=== PATIENT | female | born 1970 | race Caucasian/White ===

== ENCOUNTER → 2016-11-10 | Outpatient (CLI) | payer BC ==
[2013-10-15 11:05] VITALS: BP 124/51
[~2016-11-10] MED LIST: ALBU0.63 NEB; ALBU8.5H6 INH; CHRO1TAB2 PO; IOHEXOL 240 MG/ML 50ML VIAL. PO ONE; IOHEXOL 300 MG/ML 100ML VIAL. IV ONE; NAPR500T4 PO; OXYC-323 PO; [UNRECOGNIZED DRUG - CODE] PO
--- NOTE | 2016-11-10 13:40 | KCIC ---
CT abdomen and pelvis without and with contrast 11/10/2016 CLINICAL INDICATION: Nausea, vomiting, fevers, chills. COMPARISON: None. TECHNIQUE: Multiple CT images of the abdomen and pelvis were obtained prior to and following the intravenous administration of 100 mL Omnipaque 300. *One or more of the following individualized dose reduction techniques were utilized for this examination: 1. Automated exposure control. 2. Adjustment of the mA and/or kV according to patient size. 3. Use of iterative reconstruction technique. FINDINGS: Abdomen and pelvis: There is diffuse hepatic steatosis. Prior cholecystectomy. There is mild splenic megaly measuring 14.5 cm oblique CC. A few calcified splenic granulomas. No intra or extrahepatic biliary ductal dilatation. Adrenal glands and pancreas are unremarkable. There are multiple bilateral nonobstructive nephrolithiasis, largest in the right kidney in the superior pole measuring 11 mm and the largest in the left kidney in the superior pole measuring 6 mm. No hydroureteronephrosis. There are multiple pelvic phleboliths. Abdominal aorta is normal in caliber. Major portal, splenic and visualized superior mesenteric veins are patent. Small and large bowel loops are normal in caliber without obstruction. Appendix is normal in appearance. No retroperitoneal or mesenteric lymphadenopathy. No abdominal free fluid. There is mild circumferential thickening of the urinary bladder, however is minimally distended. Uterus is present though incompletely evaluated by CT. No iliac or inguinal lymphadenopathy. No pelvic free fluid. There is a tiny fat-containing supraumbilical ventral hernia with a neck measuring 8 mm. No destructive osseous lesions. IMPRESSION: 1. Bilateral nonobstructive nephrolithiasis. 2. Hepatic steatosis. 3. Mild splenomegaly. 4. Mild urinary bladder wall thickening which may be due to incomplete distention, however cystitis cannot be excluded. Correlation with urinalysis is recommended. Electronically signed by: Zay Ford MD (11/10/2016 1:37 PM) [id number]
== END | disposition home or self-care (01) ==
LOC: KCIC CT 12:05
PROVIDERS: ATTEND Physician Assistant
DX: N20.0 Calculus of kidney (principal); K76.0 Fatty (change of) liver, not elsewhere classified; I10 Essential (primary) hypertension; K43.9 Ventral hernia without obstruction or gangrene; R31.0 Gross hematuria; R11.2 Nausea with vomiting, unspecified; R50.9 Fever, unspecified; R16.1 Splenomegaly, not elsewhere classified; Z87.442 Personal history of urinary calculi; Z79.01 Long term (current) use of anticoagulants
CPT/HCPCS: 74178; Q9966; Q9967

== ENCOUNTER 2016-11-11 16:49 | Inpatient (IN) | payer BC ==
[~2016-11-11] VITALS: Ht 162.6 cm; Wt 125.6 kg
[~2016-11-11 16:49] MED LIST changes: -IOHEXOL 240 MG/ML 50ML VIAL. PO ONE; -IOHEXOL 300 MG/ML 100ML VIAL. IV ONE
[2016-11-11 17:36] VITALS: BP 149/96
[2016-11-11] MEDS ORDERED: ZOLPIDEM 5 MG TABLET. PO PRN (18:30)
[2016-11-11 19:00] VITALS: BP 130/82
[2016-11-11] MEDS ORDERED: ONDANSETRON PF 4 MG/2 ML VIAL. IV PRN (19:45)
[2016-11-11 19:52] LABS: BILIRUBIN,URINE SMALL (NEG); GLUCOSE,URINE NEGATIVE (NEG); NITRITE,URINE POSITIVE (NEG); PROTEIN,URINE 30 mg/dL (NEG-TRACE); UROBILINOGEN,URINE 0.2 mg/dL (0.2 mg/dL)
[2016-11-11 20:03] LABS: RBC,URINE >40 /HPF (0-2); WBC,URINE >40 /HPF (0-4)
[2016-11-11 20:04] LABS: BACTERIA,URINE MODERATE /HPF (0-FEW); SQUAMOUS EPITHELIAL CELL,UR FEW /LPF
[2016-11-11] MEDS: POTASSIUM CHLORIDE IV SCH (20:22)
[2016-11-11] MEDS: DEXTROSE IV SCH (20:22)
[2016-11-11] MEDS: NACL IV SCH (20:22)
[2016-11-11] MEDS: CIPROFLOXACIN 400MG PREMIX 200 ML IV SCH (20:23)
[2016-11-11 20:40] LABS: BASO # 0.1 x10^3/uL (0.0-0.2); BASO % 1 % (0-3); EOS % 1 % (0-3); HEMATOCRIT 40.6 % (36.0-47.0); HEMOGLOBIN 13.6 g/dL (12.0-15.5); LYMPH # 1.4 x10^3/uL (1.0-4.8); LYMPH % 14 % (24-48); MEAN CORPUSCULAR HEMOGLOBIN 28 pg (25-35); MEAN CORPUSCULAR HGB CONC 34 g/dL (31-37); MEAN CORPUSCULAR VOLUME 84 fL (79-100); MONO % 10 % (0-9); NEUT % 75 % (31-73); PLATELET COUNT 293 x10^3/uL (140-400); RED BLOOD COUNT 4.84 x10^6/uL (3.50-5.40); RED CELL DISTRIBUTION WIDTH 14.1 % (11.5-14.5); WHITE BLOOD COUNT 10.4 x10^3/uL (4.0-11.0)
[2016-11-11] MEDS: IPRATRPIUM/ALBUTEROL 0.5/2.5MG 3 ML NEBU. NEB SCH (21:01)
[2016-11-11 21:02] LABS: ALBUMIN 3.6 g/dL (3.4-5.0); ALBUMIN/GLOBULIN RATIO 0.6 (1.0-1.7); CALCIUM 9.7 mg/dL (8.5-10.1); CREATININE 1.2 mg/dL (0.6-1.0); GFR 48.2; TOTAL BILIRUBIN 0.4 mg/dL (0.2-1.0); TOTAL PROTEIN 9.2 g/dL (6.4-8.2)
[2016-11-11 21:04] LABS: POTASSIUM 2.8 mmol/L (3.5-5.1)
[2016-11-11] MEDS ORDERED: diphenhydrAMINE 50 MG/ML VIAL IV ONE (21:45)
[2016-11-11 23:00] VITALS: BP 120/74
--- NOTE | 2016-11-12 02:56 | HP ---
ADMIT DATE: 11/11/2016 CHIEF COMPLAINT: Pyelonephritis. HISTORY OF PRESENT ILLNESS: A 46-year-old white female, normally monitored with asthma, hypertension and hypothyroidism, was seen in the office about 3 days prior to admission. She had been in urgent care 2 days prior to that and put on Bactrim-DS twice a day, but had no improvement. The urine culture per the urgent care today as they called the patient told her that she was resistant to the Bactrim and Cipro would be more effective drug for her, but she has not started this medication yet. CT scan showed evidence of bilateral nonobstructive renal calculi, but no hydronephrosis or other abnormal lesions. Lab works showed mild hyponatremia, mild prerenal azotemia as well. PAST MEDICAL HISTORY: MEDICATIONS: Include losartan, levothyroxine, Spiriva and Zyflo. ALLERGIES: No known drug allergies. PAST SURGICAL HISTORY: She has had a cholecystectomy and partial thyroid resection for a "tumor" but apparently, it was not a cancer. She has also had shoulder surgery last year. SOCIAL HISTORY: Nonsmoker, , employed. Nondrinker. FAMILY HISTORY: Both parents . No cancer in the family. There is a family history of kidney stones and a sister of pancreatic cancer. REVIEW OF SYSTEMS: No other specific complaints. PHYSICAL EXAMINATION: ENT: Mucosa is mildly dry. Sclerae are clear. TMs and pharynx normal. NECK: Revealed no carotid bruits, nodes or thyroid enlargement. LUNGS: Clear, without tachypnea. CARDIOVASCULAR: Regular rate, rate is about 60-70. No murmurs heard. ABDOMEN: Obese, soft, benign and nontender. BACK: She is tender more over the right flank to palpation in the left flank. No masses are felt. EXTREMITIES: Good pedal and radial pulses. SKIN: Dry. No edema. Distal pulses in the arms and legs are normal. NEUROLOGIC: Physiologic and nonfocal. No tremors noted, orientated x 4. ASSESSMENT: Acute pyelonephritis with organism apparently resistant to sulfa. She has some degree of prerenal azotemia and mild hyponatremia and hypokalemia as a result. PLAN: IV fluids, IV Cipro and supportive care. CLEVELAND CARLOS MD DR: DAVIN/fredy JOB#: [id number] / [id number]
[2016-11-12 03:00] VITALS: BP 117/80
[2016-11-12] MEDS: DEXTROSE IV SCH (04:34)
[2016-11-12] MEDS: POTASSIUM CHLORIDE IV SCH (04:34)
[2016-11-12] MEDS: NACL IV SCH (04:34)
[2016-11-12] MEDS: LEVOTHYROXINE 88 MCG TABLET PO SCH (06:38)
[2016-11-12 07:00] VITALS: BP 123/73
[2016-11-12] MEDS: IPRATRPIUM/ALBUTEROL 0.5/2.5MG 3 ML NEBU. NEB SCH ×4 (07:53→20:04)
[2016-11-12] MEDS ORDERED: POTASSIUM CHLORIDE IV SCH (08:30)
[2016-11-12] MEDS ORDERED: DEXTROSE IV SCH (08:30)
[2016-11-12] MEDS ORDERED: NACL IV SCH (08:30)
[2016-11-12 08:45] LABS: CREATININE 0.9 mg/dL (0.6-1.0); GFR 67.1; POTASSIUM 3.1 mmol/L (3.5-5.1)
[2016-11-12] MEDS: diphenhydrAMINE 50 MG/ML VIAL IVP SCH ×2 (09:29→21:36)
[2016-11-12] MEDS: CIPROFLOXACIN 400MG PREMIX 200 ML IV SCH ×2 (09:29→21:36)
--- NOTE | 2016-11-12 10:25 | PDOC ---
GENERAL General: vss and afebrile since admission with temps at home this week > 103. normal white count on admission. hypokalemia and hyponatremia and acute renal injury improved on this am labs. feeling better this am and no significant flank tenderness on exam. chest clear and heart regular. continue same and start on iv fluids with K+. Problems: VITAL SIGNS Vital Signs: Vital Signs Date Time Temp Pulse Resp B/P (MAP) Pulse Ox O2 Delivery O2 Flow Rate FiO2 11/12/16 09:51 Room Air 11/12/16 07:55 96 11/12/16 07:00 98.4 69 18 123/73 (90) 98.4 ALLERGIES Allergies: Allergies Uncoded Allergies Type Severity Reaction Last Updated Verified Strawberries Allergy Severe 11/11/16 MEDS Medications: Current Medications Medications (Trade) Dose Ordered Sig/Quinn Start Time Stop Time Status Last Admin Dose Admin Albuterol/ Ipratropium (Duoneb) 3 ml RTQID 11/11/16 20:00 11/12/16 07:53 3 ML Ciprofloxacin/ Dextrose 200 ml @ 200 mls/hr Q12HR 11/11/16 20:00 11/12/16 09:29 200 MLS/HR Diphenhydramine HCl (Benadryl) 25 mg BID 11/12/16 09:00 11/12/16 09:29 25 MG Levothyroxine Sodium (Synthroid) 88 mcg DAILY07 11/12/16 07:00 11/12/16 06:38 88 MCG Ondansetron HCl (Zofran) 4 mg PRN Q6HRS PRN 11/11/16 19:45 Potassium Chloride 30 meq/ Dextrose/Sodium Chloride 1,015 ml @ 100 mls/hr Q10H9M 11/12/16 08:30 Zolpidem Tartrate (Ambien) 5 mg PRN QHS PRN 11/11/16 18:30 LAB Lab: Laboratory Tests Test 11/11/16 18:15 11/11/16 18:45 11/12/16 07:50 White Blood Count 10.4 x10^3/uL (4.0-11.0) Red Blood Count 4.84 x10^6/uL (3.50-5.40) Hemoglobin 13.6 g/dL (12.0-15.5) Hematocrit 40.6 % (36.0-47.0) Mean Corpuscular Volume 84 fL (79-100) Mean Corpuscular Hemoglobin 28 pg (25-35) Mean Corpuscular Hemoglobin Concent 34 g/dL (31-37) Red Cell Distribution Width 14.1 % (11.5-14.5) Platelet Count 293 x10^3/uL (140-400) Neutrophils (%) (Auto) 75 % (31-73) Lymphocytes (%) (Auto) 14 % (24-48) Monocytes (%) (Auto) 10 % (0-9) Eosinophils (%) (Auto) 1 % (0-3) Basophils (%) (Auto) 1 % (0-3) Neutrophils # (Auto) 7.8 x10^3uL (1.8-7.7) Lymphocytes # (Auto) 1.4 x10^3/uL (1.0-4.8) Monocytes # (Auto) 1.1 x10^3/uL (0.0-1.1) Eosinophils # (Auto) 0.1 x10^3/uL (0.0-0.7) Basophils # (Auto) 0.1 x10^3/uL (0.0-0.2) Sodium Level 134 mmol/L (136-145) 137 mmol/L (136-145) Potassium Level 2.8 mmol/L (3.5-5.1) 3.1 mmol/L (3.5-5.1) Chloride Level 94 mmol/L (98-107) 101 mmol/L (98-107) Carbon Dioxide Level 25 mmol/L (21-32) 25 mmol/L (21-32) Anion Gap 15 (6-14) 11 (6-14) Blood Urea Nitrogen 15 mg/dL (7-20) 12 mg/dL (7-20) Creatinine 1.2 mg/dL (0.6-1.0) 0.9 mg/dL (0.6-1.0) Estimated GFR (Cockcroft-Gault) 48.2 67.1 BUN/Creatinine Ratio 13 (6-20) Glucose Level 113 mg/dL (70-99) 124 mg/dL (70-99) Calcium Level 9.7 mg/dL (8.5-10.1) 9.0 mg/dL (8.5-10.1) Total Bilirubin 0.4 mg/dL (0.2-1.0) Aspartate Amino Transf (AST/SGOT) 30 U/L (15-37) Alanine Aminotransferase (ALT/SGPT) 36 U/L (14-59) Alkaline Phosphatase 130 U/L (46-116) Total Protein 9.2 g/dL (6.4-8.2) Albumin 3.6 g/dL (3.4-5.0) Albumin/Globulin Ratio 0.6 (1.0-1.7) Urine Collection Type Unknown Urine Color Yellow Urine Clarity Clear Urine pH 6.0 Urine Specific [place] >=1.030 Urine Protein 30 mg/dL (NEG-TRACE) Urine Glucose (UA) Negative mg/dL (NEG) Urine Ketones (Stick) Trace mg/dL (NEG) Urine Blood Moderate (NEG) Urine Nitrite Positive (NEG) Urine Bilirubin Small (NEG) Urine Urobilinogen Dipstick 0.2 mg/dL (0.2 mg/dL) Urine Leukocyte Esterase Moderate (NEG) Urine RBC >40 /HPF (0-2) Urine WBC >40 /HPF (0-4) Urine Squamous Epithelial Cells Few /LPF Urine Bacteria Moderate /HPF (0-FEW) Urine Mucus Slight /LPF NORMA GHOSH MD Nov 12, 2016 10:25
[2016-11-12 11:00] VITALS: BP 135/77
[2016-11-12] MEDS: POTASSIUM CL 40MEQ IN 0.9%NACL 1,000 ML IV SCH ×2 (12:11→21:38)
[2016-11-12 15:09] VITALS: BP 140/80
[2016-11-12 19:25] VITALS: BP 145/85
[2016-11-12] MEDS: BENZOCAINE/MENTHOL LOZENGE. PO PRN (22:30)
[2016-11-12 23:59] VITALS: BP 139/71
[2016-11-13 03:35] VITALS: BP 115/72
[2016-11-13] MEDS: POTASSIUM CL 40MEQ IN 0.9%NACL 1,000 ML IV SCH ×3 (03:45→22:09)
[2016-11-13 05:47] LABS: BASO # 0.1 x10^3/uL (0.0-0.2); BASO % 1 % (0-3); EOS % 3 % (0-3); HEMATOCRIT 32.4 % (36.0-47.0); HEMOGLOBIN 10.8 g/dL (12.0-15.5); LYMPH # 1.3 x10^3/uL (1.0-4.8); LYMPH % 21 % (24-48); MEAN CORPUSCULAR HEMOGLOBIN 28 pg (25-35); MEAN CORPUSCULAR HGB CONC 33 g/dL (31-37); MEAN CORPUSCULAR VOLUME 85 fL (79-100); MONO % 11 % (0-9); NEUT % 64 % (31-73); PLATELET COUNT 215 x10^3/uL (140-400); RED BLOOD COUNT 3.82 x10^6/uL (3.50-5.40); RED CELL DISTRIBUTION WIDTH 14.4 % (11.5-14.5); WHITE BLOOD COUNT 6.3 x10^3/uL (4.0-11.0)
[2016-11-13 06:30] LABS: CALCIUM 8.3 mg/dL (8.5-10.1); CREATININE 0.7 mg/dL (0.6-1.0); GFR 89.7; POTASSIUM 3.3 mmol/L (3.5-5.1)
[2016-11-13] MEDS: LEVOTHYROXINE 88 MCG TABLET PO SCH (06:35)
[2016-11-13] MEDS: NON FORMULARY ITEM PO SCH ×3 (06:35→19:46)
[2016-11-13] MEDS: BENZOCAINE/MENTHOL LOZENGE. PO PRN ×2 (06:35→19:46)
[2016-11-13 07:00] VITALS: BP 105/61
[2016-11-13] MEDS: IPRATRPIUM/ALBUTEROL 0.5/2.5MG 3 ML NEBU. NEB SCH ×4 (07:18→19:55)
[2016-11-13] MEDS: diphenhydrAMINE 50 MG/ML VIAL IVP SCH ×2 (08:05→19:47)
[2016-11-13] MEDS: CIPROFLOXACIN 400MG PREMIX 200 ML IV SCH ×2 (08:05→19:47)
[2016-11-13] MEDS ORDERED: ACETAMINOPHEN 325 MG TABLET. PO PRN (09:45)
[2016-11-13 11:00] VITALS: BP 129/88
--- NOTE | 2016-11-13 12:22 | PDOC ---
GENERAL General: vss and afebrile. feeling better daily. no flank tenderness. awake and alert. iv antibiotics ongoing. likely change to po antibiotics tomorrow with dc. Problems: VITAL SIGNS Vital Signs: Vital Signs Date Time Temp Pulse Resp B/P (MAP) Pulse Ox O2 Delivery O2 Flow Rate FiO2 11/13/16 11:19 Room Air 11/13/16 11:00 97.7 78 18 129/88 (102) 97 97.7 I & O I & O Intake and Output 11/14/16 07:00 Intake Total 320 ml Balance 320 ml Intake Oral 320 ml ALLERGIES Allergies: Allergies Uncoded Allergies Type Severity Reaction Last Updated Verified Strawberries Allergy Severe 11/11/16 MEDS Medications: Current Medications Medications (Trade) Dose Ordered Sig/Quinn Start Time Stop Time Status Last Admin Dose Admin Acetaminophen (Tylenol) 650 mg PRN Q6HRS PRN 11/13/16 09:45 11/13/16 10:08 650 MG Albuterol/ Ipratropium (Duoneb) 3 ml RTQID 11/11/16 20:00 11/13/16 11:19 3 ML Ciprofloxacin/ Dextrose 200 ml @ 200 mls/hr Q12HR 11/11/16 20:00 11/13/16 08:05 200 MLS/HR Diphenhydramine HCl (Benadryl) 25 mg BID 11/12/16 09:00 11/13/16 08:05 25 MG Levothyroxine Sodium (Synthroid) 88 mcg DAILY07 11/12/16 07:00 11/13/16 06:35 88 MCG Non-Formulary Medication 2 ea BID 11/13/16 09:00 11/13/16 08:05 2 EA Ondansetron HCl (Zofran) 4 mg PRN Q6HRS PRN 11/11/16 19:45 Potassium Chloride 30 meq/ Dextrose/Sodium Chloride 1,015 ml @ 100 mls/hr Q10H9M 11/12/16 08:30 11/12/16 11:43 DC Potassium Chloride/Sodium Chloride 1,000 ml @ 125 mls/hr Q8H 11/12/16 11:45 11/13/16 08:06 125 MLS/HR Throat Lozenges (Cepacol Sore Throat Lozenge) 1 cruzito PRN Q2HRS PRN 11/12/16 21:45 11/13/16 06:35 1 CRUZITO Zolpidem Tartrate (Ambien) 5 mg PRN QHS PRN 11/11/16 18:30 LAB Lab: Laboratory Tests Test 11/13/16 04:45 White Blood Count 6.3 x10^3/uL (4.0-11.0) Red Blood Count 3.82 x10^6/uL (3.50-5.40) Hemoglobin 10.8 g/dL (12.0-15.5) Hematocrit 32.4 % (36.0-47.0) Mean Corpuscular Volume 85 fL (79-100) Mean Corpuscular Hemoglobin 28 pg (25-35) Mean Corpuscular Hemoglobin Concent 33 g/dL (31-37) Red Cell Distribution Width 14.4 % (11.5-14.5) Platelet Count 215 x10^3/uL (140-400) Neutrophils (%) (Auto) 64 % (31-73) Lymphocytes (%) (Auto) 21 % (24-48) Monocytes (%) (Auto) 11 % (0-9) Eosinophils (%) (Auto) 3 % (0-3) Basophils (%) (Auto) 1 % (0-3) Neutrophils # (Auto) 4.0 x10^3uL (1.8-7.7) Lymphocytes # (Auto) 1.3 x10^3/uL (1.0-4.8) Monocytes # (Auto) 0.7 x10^3/uL (0.0-1.1) Eosinophils # (Auto) 0.2 x10^3/uL (0.0-0.7) Basophils # (Auto) 0.1 x10^3/uL (0.0-0.2) Sodium Level 141 mmol/L (136-145) Potassium Level 3.3 mmol/L (3.5-5.1) Chloride Level 107 mmol/L (98-107) Carbon Dioxide Level 24 mmol/L (21-32) Anion Gap 10 (6-14) Blood Urea Nitrogen 7 mg/dL (7-20) Creatinine 0.7 mg/dL (0.6-1.0) Estimated GFR (Cockcroft-Gault) 89.7 Glucose Level 92 mg/dL (70-99) Calcium Level 8.3 mg/dL (8.5-10.1) NORMA GHOSH MD Nov 13, 2016 12:22
[2016-11-13 15:01] VITALS: BP 130/85
[2016-11-13 19:04] VITALS: BP 146/78
[2016-11-14 02:51] VITALS: BP 143/84
[2016-11-14] MEDS: POTASSIUM CL 40MEQ IN 0.9%NACL 1,000 ML IV SCH ×2 (04:28→11:45)
[2016-11-14] MEDS: LEVOTHYROXINE 88 MCG TABLET PO SCH (06:19)
[2016-11-14 07:00] VITALS: BP 129/87
[2016-11-14] MEDS: IPRATRPIUM/ALBUTEROL 0.5/2.5MG 3 ML NEBU. NEB SCH ×2 (07:18→11:23)
--- NOTE | 2016-11-14 08:04 | PDOC3 ---
Discharge Summary IPC Date of Admission: Nov 11, 2016 Discharge Date: Nov 14, 2016 Admitting Diagnosis Pyelonephritis, HAYDE Problems: Final Diagnosis Pyelonephritis, HAYDE CONSULTS None Procedures None Brief Hospital Course Ms. Sigala is a 46 old female who presented with abdominal pain, fever, malaise and UTI diagnosed at urgent care prior to admission. She was given Bactrim, but later cultures showed that her E.coli strand was resistant to Bactrim. She continued to be febrile as outpatient so was admitted. A CT Abd/ pelvis showed multiple bilateral renal calculi, nonobstructing. She was treated with Cipro and improved. She is stable for discharge today. She was discharged with Augmentin to complete a 10 day course. Changed from Cipro as she complained of rash and itching related to doses of Cipro. She will follow up with myself or Dr. Hills in one week. Continue all home medications. On f/u, recheck Hgb and K+ as they were both mildly low during her hospitalization. Also check blood pressure as it was mildly elevated during hospitalization. Patient History: Cancer confirmed (situation) G8 SISTER FHx: lupus erythematosus Problems: Disposition Home CONDITION AT DISCHARGE: Improved Diet Regular Scheduled Naproxen (Naproxen), 2 TAB PO BID, (Reported) Zileuton (Zyflo Cr), 1,200 MG PO BID, (Reported) Miscellaneous Medications Albuterol Sulfate (Albuterol Sulfate Hfa Inhaler), 2 PUFF INH, (Reported) Albuterol Sulfate (Albuterol Sulfate Neb Soln), 1 VIAL NEB, (Reported) Chrom Shyam/Brindall Greco (Fat Shaylee Plus Tablet), 1 EACH PO, (Reported) Oxycodone/Apap 5-325 (Percocet 5-325 Mg Tablet), 1 TAB PO, (Reported) Follow Up With Dr. Johnston or Dr. Hills in 1 week RAPHAEL JOHNSTON MD Nov 14, 2016 08:04
[2016-11-14] MEDS: CIPROFLOXACIN 400MG PREMIX 200 ML IV SCH (09:16)
[2016-11-14] MEDS: NON FORMULARY ITEM PO SCH (09:16)
[2016-11-14] MEDS: diphenhydrAMINE 50 MG/ML VIAL IVP SCH (09:16)
[2016-11-14 11:00] VITALS: BP 138/88
== END 2016-11-14 14:40 | disposition home or self-care (01) | DRG 683 ==
LOC: 4 NORTH 16:49
PROVIDERS: ADMIT Family Medicine; ATTEND Family Medicine
DX: N17.9 Acute kidney failure, unspecified (principal); E87.1 Hypo-osmolality and hyponatremia; N10 Acute pyelonephritis; I10 Essential (primary) hypertension; E03.9 Hypothyroidism, unspecified; E87.6 Hypokalemia; J45.909 Unspecified asthma, uncomplicated; Z80.0 Family history of malignant neoplasm of digestive organs; Z90.49 Acquired absence of other specified parts of digestive tract; Z88.8 Allergy status to other drugs, medicaments and biological substances; Z84.89 Family history of other specified conditions; Z80.9 Family history of malignant neoplasm, unspecified
CPT/HCPCS: 36415; 80048; 80053; 81001; 85025; 87086; 87186; 94250; 94640; 94760; J0744; J1200; J3480; J7042; J7620

== ENCOUNTER → 2017-06-16 | Outpatient (CLI) | payer BC | END | disposition home or self-care (01) | LOC: ECHO 13:23 | DX: I08.1 Rheumatic disorders of both mitral and tricuspid valves (principal); R06.00 Dyspnea, unspecified; R60.0 Localized edema | CPT/HCPCS: 93306 ==

== ENCOUNTER → 2020-01-09 | Outpatient (CLI) | payer OTHER ==
[~2020-01-09] MED LIST changes: +BUPR100T8 PO; +FERR-36 PO; +FLUT12AE IH; +FLUT9.9S NS; +FOLI1TAB35 PO; +LEVO88TA4 PO; +MELO7.5T29 PO; +NAPR-514 PO; -NAPR500T4 PO; +OMEP40CA45 PO; -OXYC-323 PO; +OXYC1TAB15 PO; +ZILE600T PO
--- NOTE | 2020-01-09 12:41 | RAD ---
AP and lateral views left knee 01/09/2020 12:00 AM Indication: Reason: LEFT KNEE PAIN, NO KNOWN INJURY / Spl. Instructions: / History: Comparison: None Findings: No evidence of acute fracture or dislocation is identified. Mild chronic irregularity of the medial femoral condyle appears to be present. Mild medial compartment joint space narrowing is seen. No overt effusion is seen. No acute soft tissue changes are seen. Mild patellofemoral osteophytosis is noted. IMPRESSION: Mild degenerative changes of the left knee without evidence of acute osseous of normality. Electronically signed by: Niraml Rodriguez MD (01/09/2020 12:37 PM) [id number]
== END ==
LOC: RAD 11:27
PROVIDERS: ATTEND Anesthesiology Pain Medicine
DX: M17.12 Unilateral primary osteoarthritis, left knee (principal); M25.762 Osteophyte, left knee
CPT/HCPCS: 73560